=== PATIENT | male | born 1960 | race Caucasian/White ===

== ENCOUNTER → 2017-02-03 | Outpatient (CLI) | payer BC ==
[~2017-02-03] MED LIST: CEPHALEXIN500 M1 PO; HYDROCODONE 1.480 ML PO; SYNTHROID0.1 MG/TAB PO; [UNRECOGNIZED DRUG - OTHER] PO
== END ==
LOC: COL.RAD 09:32
DX: C61 Malignant neoplasm of prostate (principal)
CPT/HCPCS: A9503

== ENCOUNTER → 2017-03-29 | Outpatient (CLI) | payer BC | LOC: COL.RAD 08:16 | DX: C61 Malignant neoplasm of prostate (principal) | CPT/HCPCS: Q9967 ==

== ENCOUNTER 2018-03-26 16:41 | Emergency (ER) | payer BC ==
[~2018-03-26] VITALS: Ht 182.9 cm; Wt 77.3 kg
[2018-03-26 16:58] VITALS: BP 132/70; PULSE 71; TEMP 97.7
[2018-03-26] MEDS ORDERED: VITAMIN D 400400 IU PO (17:04)
[2018-03-26] MEDS ORDERED: MULTIPLE VITAMI1 CAP PO (17:04)
[2018-03-26] MEDS ORDERED: OSCAL 500 TAB500 MG PO (17:04)
[2018-03-26] MEDS ORDERED: GINKGO3 PO (17:05)
[2018-03-26] MEDS ORDERED: EZFE 200200 MG PO (17:07)
[2018-03-26] MEDS ORDERED: NORCO 325 MG-51 TAB PO (20:02)
[2018-03-26] MEDS ORDERED: PREDNISONE20 MG PO (20:02)
[2018-03-26] MEDS ORDERED: VOLTAREN 75 DR75 MG PO (20:02)
== END 2018-03-26 20:33 | disposition home or self-care (01) ==
LOC: COL.ER 16:41
DX: M25.551 Pain in right hip (principal); E03.9 Hypothyroidism, unspecified; Z85.46 Personal history of malignant neoplasm of prostate; Z98.890 Other specified postprocedural states; F17.210 Nicotine dependence, cigarettes, uncomplicated; X50.0XXA Overexertion from strenuous movement or load, initial encounter; Y92.89 Other specified places as the place of occurrence of the external cause
CPT/HCPCS: J1885; J7512

== ENCOUNTER → 2019-03-05 | Outpatient (CLI) | payer BC ==
[~2019-03-05] MED LIST changes: +EZFE 200200 MG PO; +GINKGO3 PO; +MULTIPLE VITAMI1 CAP PO; +NORCO 325 MG-51 TAB PO; +OSCAL 500 TAB500 MG PO; +PREDNISONE20 MG PO; +VITAMIN D 400400 IU PO; +VOLTAREN 75 DR75 MG PO
== END ==
LOC: COL.RAD 08:00
DX: C61 Malignant neoplasm of prostate (principal); J43.9 Emphysema, unspecified; J98.4 Other disorders of lung; M43.8X4 Other specified deforming dorsopathies, thoracic region; Z90.79 Acquired absence of other genital organ(s)
CPT/HCPCS: Q9967

== ENCOUNTER → 2022-01-03 | Outpatient (CLI) | payer BC | LOC: COL.RAD 07:53 | DX: J43.2 Centrilobular emphysema (principal); R22.1 Localized swelling, mass and lump, neck ==